=== PATIENT | male | born 1980 | race Two or more races ===

== ENCOUNTER 2025-03-09 08:55 | Inpatient (IN) | payer OTHER ==
[~2025-03-09] VITALS: Ht 185.4 cm; Wt 73.8 kg
--- NOTE | 2025-03-09 10:16 | Physician Documentation ---
History of Present Illness ~ Chief Complaint: Finger pain Stated Complaint: R HAND SWELLING Time Seen by MD: 10:04 OK to notify your PCP?: Yes Source: patient Mode of Arrival: POV Exam Limitations: no limitations HPI 45-year-old right-handed male with chief complaint right 5th digit pain and swelling which started yesterday. He states he was pulling out some a got a plans and he is not sure if he got bit by something or what but after he was doing this he felt pain and swelling in his finger which has gotten progressively worse since yesterday. No pre arrival treatment. He states he did get a small thorn in his finger but he pulled it out in is fairly confident that there is nothing remaining in the finger. States it is hard for him to bend his finger due to the pain. The redness has started to spreads up his hand as of this morning. Last tetanus 2020. Medication Reconciliation Allergies: Coded Allergies: No Known Allergies (Unverified , 03/09/25) Past Medical History Past Medical History: No Pertinent History Review of Systems All Other Systems at this time: Reviewed and Negative Physical Exam Vital Signs: Temperature: 97.7, Source: Temporal, Heart Rate: 59, Respiratory Rate: 18, BP: 128/84, Pulse Oximetry: 100, Weight: 73.800 Oxygen Flow Rate: 0 Physical Exam GENERAL: Alert, no acute distress. HEENT: NCAT, EOMI, PERRL, normal oropharynx, moist oral mucosa. NECK: Supple, trachea midline. CARDIAC: Regular rate and rhythm, no murmurs, rubs, or gallops. Cap refill at right hand 5th digit less than 2 seconds. Radial pulses 2+ bilaterally RESPIRATORY: Equal breath sounds, clear to auscultation bilaterally, no respiratory distress. MUSCULOSKELETAL: Normal gait. Right hand 5th digit held in partially flexed position. Unable to fully extend the digit due to pain. Passive extension causes pain. Edema and erythema at the MCP joint which spreads dustally to the PIP joint and proximally to the distal 4th and 5th metacarpals. Skin lines of finger are barely visible. Erythema is only on the dorsum of the digit and hand. No tenderness over the metacarpals or wrist. NEUROLOGICAL: Awake, alert, and oriented x 3. SKIN: Warm/dry, no pallor, no rash. PSYCH: Alert and appropriate. Affect congruent with mood. Speech is clear. Good eye contact. Progress Results/Orders Results/Orders Orders - FANNIE PAUL ESR (03/09/25 10:16) Finger(S) (03/09/25 10:16) Page Hospitalist (03/09/25 11:06) Completed Orders - FANNIE PAUL Cbc/Diff (03/09/25 10:16) BMP (03/09/25 10:16) Tetanus/Pertuss/Diph Acell/Pf (Boostrix (03/09/25 10:20) Finger(S) (03/09/25 10:16) Ceftriaxone 2gm/D5w 50ml Bag (Rocephin 2 (03/09/25 10:40) Medications Received in ER Medications (Trade) Dose Ordered Sig/Surinder Route PRN Reason Start Time Stop Time Status Last Admin Dose Admin Ceftriaxone Sodium/Dextrose 50 ml @ 100 mls/hr ONCE ONCE IV 03/09/25 10:40 03/09/25 11:09 DC 03/09/25 11:10 100 MLS/HR Vital Signs 03/09/25 09:01 Temp 97.7 Pulse 59 Resp 18 B/P (MAP) 128/84 Pulse Ox 100 O2 Flow Rate 0 Laboratory Tests Test 03/09/25 10:39 White Blood Count 6.8 Red Blood Count 5.19 Hemoglobin 15.2 Hematocrit 44.7 Mean Corpuscular Volume 86.2 Mean Corpuscular Hemoglobin 29.2 Mean Corpuscular Hemoglobin Concent 33.9 Red Cell Distribution Width 13.8 Platelet Count 263 Mean Platelet Volume 8.0 Neutrophils (%) (Auto) 60.7 Lymphocytes (%) (Auto) 27.1 Monocytes (%) (Auto) 10.7 Eosinophils (%) (Auto) 0.7 Basophils (%) (Auto) 0.8 Neutrophils # (Auto) 4.1 Lymphocytes # (Auto) 1.8 Monocytes # (Auto) 0.7 Eosinophils # (Auto) 0.0 Basophils # (Auto) 0.1 CBC Comment Sodium Level 140 Potassium Level 4.5 Chloride Level 106 Carbon Dioxide Level 27.6 Anion Gap 6 L Blood Urea Nitrogen 14 Creatinine 1.11 H Estimated GFR/1.73 m2 72 BUN/Creatinine Ratio 12.6 Glucose Level 97 Calcium Level 9.1 Albumin 3.9 Chemistry Comments Medical Decision Making Finger Diff Dx:Considerations: Include: Abrasion, Cellulitis, Contusion, Dislocation, Fracture, Hematoma, Laceration, Neurovascular injury, Open fracture, Subungual hematoma, Other Additional Comment Findings consistent with extensor tenosynovitis based off of pain with passive extension unable to actively extend digit. . Departure Time of Disposition: 10:16 Admitted to Inpatient Unit: to hospitalist, to orthopedist Impression: Primary Impression: Extensor tenosynovitis of finger Additional Impression: Cellulitis of finger of right hand Condition: Fair Referrals: NO PRIMARY CARE PROVIDER (PCP) Education Educated: Patient Educated regarding: diagnosis, treatment, need for follow up Signature Scribe Signature: x Attestation: FANNIE Carvalho March 09, 2025 10:16
[2025-03-09] MEDS: TETanus/Pertussis (Acell)/Diphther VAC/PF (Tdap-Adult) 0.5ml syringe IMVAC ONE (10:26)
--- NOTE | 2025-03-09 10:42 | RADIOLOGY REPORT ---
CLINICAL INDICATION: right 5th digit TECHNIQUE: right DI FINGER(S) Comparison: None FINDINGS/IMPRESSION: : There is no evidence of acute fracture or dislocation. Soft tissues are unremarkable.
[2025-03-09 10:48] LABS: BASOPHILS # (AUTO) 0.1 X10'3 (0-0.2); BASOPHILS % (AUTO) 0.8 % (0-1); EOSINOPHILS % (AUTO) 0.7 % (0-6); HEMATOCRIT 44.7 % (42.0-52.0); HEMOGLOBIN 15.2 g/dl (14.0-17.9); LYMPHOCYTES # (AUTO) 1.8 X10'3 (1.1-4.8); LYMPHOCYTES % (AUTO) 27.1 % (21-51); MEAN CORPUSCULAR HEMOGLOBIN 29.2 PG (27.0-31.0); MEAN CORPUSCULAR HGB CONC 33.9 g/dL (33.0-36.5); MEAN CORPUSCULAR VOLUME 86.2 FL (78-98); MONOCYTES # (AUTO) 0.7 X10'3 (0-0.9); MONOCYTES % (AUTO) 10.7 % (2-12); NEUTROPHILS # (AUTO) 4.1 X10'3 (1.8-7.7); NEUTROPHILS % (AUTO) 60.7 % (42-75); PLATELET COUNT 263 X10'3 (140-440); RED BLOOD COUNT 5.19 X10'6 (4.70-6.10); RED CELL DISTRIBUTION WIDTH 13.8 % (11.5-14.5); WHITE BLOOD COUNT 6.8 X10'3 (4.5-11.0)
[2025-03-09 10:56] LABS: ALBUMIN 3.9 G/DL (3.4-5.0); ANION GAP 6 (8-16); BLOOD UREA NITROGEN 14 MG/DL (7-18); BUN/CREATININE RATIO 12.6 (10.0-20.0); CALCIUM 9.1 MG/DL (8.5-10.1); CHLORIDE 106 MMOL/L (99-107); CREATININE 1.11 MG/DL (0.60-1.10); GLUCOSE 97 MG/DL (70-104); POTASSIUM 4.5 MMOL/L (3.5-5.1); SODIUM 140 MMOL/L (135-145); TOTAL CARBON DIOXIDE 27.6 MMOL/L (24-32); eCRCL 88 ML/MIN; eGFR 72 ML/MIN
[2025-03-09] MEDS: CefTRIAXone 2gm/D5W 50ml BAG 50 ML IV ONE (11:10)
[2025-03-09] MEDS ORDERED: magnesium hydroxide 30ml (MOM) UD suspension PO PRN (11:25)
[2025-03-09] MEDS ORDERED: potassium Cl 40MEQ/1/2NS 520ml 520 ML IV PRN (11:25)
[2025-03-09] MEDS ORDERED: potassium Cl 20 mEq SR tablet PO PRN ×2 (11:25)
[2025-03-09] MEDS ORDERED: magnesium sulf-water 4G/100mL 100 ML IV PRN (11:25)
[2025-03-09] MEDS ORDERED: HYDROcodone/acetaminophen 5mg/325mg tablet PO PRN (11:25)
[2025-03-09] MEDS ORDERED: bisacodyl 10mg suppository rectal RC PRN (11:25)
[2025-03-09] MEDS ORDERED: acetaminophen 325mg tablet PO PRN (11:25)
[2025-03-09] MEDS ORDERED: mag hydrox/Alum hydrox/simeth 30ml oral suspension PO PRN (11:25)
[2025-03-09] MEDS ORDERED: ondansetron/PF 4mg/2ml inj IV PRN (11:25)
[2025-03-09] MEDS ORDERED: magnesium sulf-water 2g/50mL 50 ML IV PRN (11:25)
[2025-03-09] MEDS ORDERED: magnesium Cl slow-release 64mg tablet PO PRN (11:25)
[2025-03-09 11:50] LABS: APTT 28 SECONDS (22-32); INR 1.1 INR; PROTHROMBIN TIME 11.1 SECONDS (9.0-12.0)
[2025-03-09] MEDS: ampicill/sulbac 1.5gm/NS 100ml 100 ML IV SCH (12:00)
[2025-03-09] MEDS: normal saline 1000ml 1,000 ML IV SCH (12:00)
[2025-03-09 12:01] LABS: MAGNESIUM 2.1 MG/DL (1.5-2.4)
[2025-03-09 12:08] LABS: HEMOGLOBIN A1C 5.1 % (4.5-6.2)
[2025-03-09] MEDS ORDERED: NO HOME MEDS (12:23)
--- NOTE | 2025-03-09 13:32 | HISTORY AND PHYSICAL-Residence ---
History & Physical Providers to CC Resident Creating Document: MARK SAMAYOA, RICHARD ~ History of Present Illness Reason for Admit\\Complaint: Right little finger swelling and redness History of Present Illness This is a 45-year-old male with no significant past medical history presents to the ED with a chief complaint of worsening pain and swelling in the right 5th finger. Patient mentions that he was doing some yard work and got in contact with "agave plant: on Wednesday morning, following which he developed some pain and redness in the finger. The pain got worse over the next two days with difficulty in flexion of the 5th right little finger which concerned him. The swelling and redness also spread slowly to the dorsum of the hand. He denies any associated fever, chills, insect bite, thorn prick. ED course: One dose of tetanus shot and one dose of ceftriaxone given in the ED. an x-ray of the right hand was done which was unremarkable. Allergies: Coded Allergies: No Known Allergies (Unverified , 03/09/25) Home Medications Home Medications Active Reported No Home Medications (Home Med List) Each Past Medical History Past Medical History Not significant Past Surgical History Surgical History Comment Not significant Past Social History Social History Comment Occasional alcohol use. Denies smoking, marijuana, drug use ROS All Other Systems: Reviewed and Negative ROS Reviewed and negative except for the pertinent positives in HPI Exam Vitals: Vital Signs Date Time Temp Pulse Resp B/P (MAP) Pulse Ox O2 Delivery O2 Flow Rate FiO2 03/09/25 09:01 97.7 59 18 128/84 100 0 General: General: well developed, well nourished. Awake , alert, and oriented x4, resting comfortably in the bed, in no acute distress . HEENT: Atraumatic, normocephalic, EOMI, anicteric sclera B; pink conjunctiva; PERRLA, normal oropharynx, moist oral and nasal mucosa. Tympanic membrane , nose , throat clear. Neck: Trachea midline. Supple, full range of motion, no JVD, bruit , hepatojugular reflex , lymphadenopathy or masses, or other lesions Cardiac: Regular rhythm, regular rate no murmurs, rubs, or gallops. Normal S1 and S2, no S3 noticed. PMI is normal. Respiratory: Equal breath sounds bilaterally, no tachypnea; lungs clear to auscultation bilaterally, no wheezing ,rub or rales, or crackles. Chest wall is symmetric and without deformity. No signs of trauma. Chest wall is nontender. No signs of respiratory distress. Resonance is normal upon percussion bilaterally. Gastrointestinal: Abdomen symmetric, non-distended, soft, non-tender, normal bowel sounds x4 quadrant, normoactive, no hepatosplenomegaly , no masses , no bruit, no flank pain bilaterally. No voluntary guarding, rebound, or rigidity. No tenderness to percussion. No pulsatile masses. Equal femoral pulses. No Brooks's sign or McBurney point tenderness. Back; no CVA tenderness bilaterally, no deformities. Neck and back are without deformity as well. No tenderness noted on palpation of the spinous processes. Spinous processes are midline. Cervical, thoracic, and lumbar paraspinal muscles are not tender and are without spasm. : normal external genitalia, without lesions, swelling, masses or tenderness. Musculoskeletal: Extremities: warmth and redness in the right little finger spreading to the dorsum of the head, no associated discharge or open wounds, normal range of motion, non-tender, muscle strength 5/5 x 4. Negative Homans signs bilaterally on lower extremity. Distal pulses full symmetrical, no clubbing, cyanosis , edema. Neurological: Speech is clear, alert, and oriented x 4. No motor or sensory deficit, deep tendon reflexes normal, cerebellar intact. Cranial nerves II-XII intact. Psych: Alert and or appropriate, normal affect. Vascular: Good distal pulses, which are equal x4; capillary refill less than 2 seconds. Skin: Warm, dry, no pallor, no rash or petechiae. Diagnostic Data Last Recorded Lab Results: 03/09/25 1039 03/09/25 1039 Diagnostic Data: Laboratory Tests Test 03/09/25 10:39 Prothrombin Time 11.1 SECONDS (9.0-12.0) INR International Normalized Ratio 1.1 INR Activated Partial Thromboplast Time 28 SECONDS (22-32) Coagulation Comments Advance Care Planning Advanced Care plannin - 30 Minutes (I spent a total of 17 minutes on reviewing various resuscitative measures/ ACP with the patient at the time of admission. The patient has decided on a full code status) Additional Plan Right little finger cellulitis Started on IV 1.5 g Unasyn q.6 hours scheduled. We will discharge on oral antibiotics after improvement. ESR, procalcitonin, lactic acid is within normal limits. Lab work including CBC, CMP were unremarkable. No leukocytosis. X-ray of the hand is unremarkable. Patient was given tetanus shot in the ED. Pain control with ibuprofen p.r.n. Blood cultures ordered. Follow up. Creatinine 1.1. Hydration with IV fluids at the rate of 100 mL/hour. Code Status: Full code DVT Prophylaxis: Heparin subcutaneous Analgesia/Sedation: Ibuprofen Lines/Tubes: PIV Gi Prophylaxis: None Nutrition: Regular diet PT: Yes Prognosis: Guarded Disposition: Admit to surgical floor Mark James MD Internal Medicine Resident PGY-1 Date of Service: March 09, 2025 Billing Provider: ROSA ELENA WALKER MD Common Visit Codes: 88472-[id number] INP/OBS CARE (HIGH) YAOMARK, RES March 09, 2025 13:32 ROSA ELENA WALKER MD Mar 13, 2025 16:22
[2025-03-09 16:30] VITALS: BP 130/85; PULSE 52; RESP 17; TEMP 98.5; O2SAT 100
--- NOTE | 2025-03-09 17:02 | CONSULTATION REPORT ---
History of Present Illness Providers to CC ~ Refering : Dr. Jimenez History of Present Illness The patient is a 45-year-old otherwise healthy male who states that two days ago he was working around some agave plant and might have gotten a thorn into the backside of his right pinky finger. It got worse over the subsequent 36 hours then he presented to the ER today with pain and swelling and redness to the finger and hand. He states prior to this he had no issues and no previous evidence of infection or dysfunction of the hand. He has been on antibiotics for a few hours with Bactrim and states he does not think he is much better. Allergies: Coded Allergies: No Known Allergies (Unverified , 03/09/25) Home Medications Home Medications Active Reported No Home Medications (Home Med List) Each Physical Exam Last Vital Signs Recorded: Temperature: 97.5, Source: Oral, Heart Rate: 51, Respiratory Rate: 18, BP: 135/87, Pulse Oximetry: 100, Weight: 73.800 Extremities There is some swelling of the right small finger and over the middle segment there was a small area which may represent small thorn or the foreign body. The does not appear to be any irritability of the extensor tendon in the area of entry is not near the joint. There was no tenderness on the flexor side. His tendons are intact though motion is limited because of the swelling of the finger. There was no tenderness in the hand or forearm area. White blood cell count is normal Results Diagram Lab Result Diagram: 03/09/25 1039 03/09/25 1039 Assessment/Plan Problems/Diagnosis: (1) Cellulitis of finger of right hand Additional Plan I think he will do well with IV antibiotics for a period of 24 hours. I will check in on him were then the next 12 hours and re-evaluate. Thank you for this consultation. SAMM FINK Jr., MD March 09, 2025 17:02
[2025-03-09 18:00] VITALS: BP 130/85; PULSE 52; RESP 17; TEMP 98.5; O2SAT 99
[2025-03-09 20:00] VITALS: RESP 17; O2SAT 99
[2025-03-09] MEDS: docusate sod 100mg capsule PO SCH (20:00)
[2025-03-09] MEDS: K and/or MAG REPLACEMENT MC SCH (20:00)
[2025-03-09] MEDS: heparin, porcine 5000 units/ml vial SQ SCH (20:42)
[2025-03-09 22:00] VITALS: BP 130/73; PULSE 58; RESP 16; TEMP 97.8; O2SAT 98
[2025-03-10 06:00] VITALS: BP 112/71; PULSE 55; RESP 16; TEMP 96.6; O2SAT 97
[2025-03-10 06:50] LABS: BASOPHILS # (AUTO) 0.1 X10'3 (0-0.2); BASOPHILS % (AUTO) 1.1 % (0-1); EOSINOPHILS # (AUTO) 0.1 X10'3 (0-0.9); HEMATOCRIT 39.5 % (42.0-52.0); HEMOGLOBIN 13.5 g/dl (14.0-17.9); LYMPHOCYTES # (AUTO) 2.5 X10'3 (1.1-4.8); LYMPHOCYTES % (AUTO) 34.9 % (21-51); MEAN CORPUSCULAR HEMOGLOBIN 29.6 PG (27.0-31.0); MEAN CORPUSCULAR HGB CONC 34.2 g/dL (33.0-36.5); MEAN CORPUSCULAR VOLUME 86.4 FL (78-98); MEAN PLATELET VOLUME 8.5 FL (7.4-10.4); MONOCYTES # (AUTO) 0.6 X10'3 (0-0.9); MONOCYTES % (AUTO) 9.1 % (2-12); NEUTROPHILS # (AUTO) 3.8 X10'3 (1.8-7.7); NEUTROPHILS % (AUTO) 52.9 % (42-75); PLATELET COUNT 218 X10'3 (140-440); RED BLOOD COUNT 4.57 X10'6 (4.70-6.10); RED CELL DISTRIBUTION WIDTH 13.9 % (11.5-14.5); WHITE BLOOD COUNT 7.1 X10'3 (4.5-11.0)
[2025-03-10 07:12] LABS: ALANINE AMINOTRANSFERASE 17 U/L (12-78); ALBUMIN/GLOBULIN RATIO 1.1 (1.1-1.5); ALKALINE PHOSPHATASE 59 IU/L (46-116); ANION GAP 8 (8-16); ASPARTATE AMINO TRANSFERASE 17 U/L (10-37); BILIRUBIN,TOTAL 0.5 MG/DL (0.1-1.0); BLOOD UREA NITROGEN 13 MG/DL (7-18); BUN/CREATININE RATIO 12.4 (10.0-20.0); CALCIUM 8.2 MG/DL (8.5-10.1); CHLORIDE 108 MMOL/L (99-107); CHOL/HDL RATIO 2.6 (0.00-4.99); CHOLESTEROL 143 MG/DL (0-200); CREATININE 1.05 MG/DL (0.60-1.10); GLUCOSE 99 MG/DL (70-104); HDL CHOLESTEROL 54 MG/DL (35-60); LDL CHOLESTEROL 75 MG/DL (50-100); MAGNESIUM 1.9 MG/DL (1.5-2.4); POTASSIUM 4.1 MMOL/L (3.5-5.1); SODIUM 142 MMOL/L (135-145); TOTAL CARBON DIOXIDE 26.1 MMOL/L (24-32); TOTAL PROTEIN 5.8 G/DL (6.4-8.2); TRIGLYCERIDES 54 MG/DL (20-135); eCRCL 93 ML/MIN; eGFR 76 ML/MIN
[2025-03-10 08:00] VITALS: RESP 16
[2025-03-10 10:00] VITALS: BP 121/69; PULSE 57; RESP 16; TEMP 98; O2SAT 97
[2025-03-10] MEDS ORDERED: IBUP-1985 PO (13:08)
[2025-03-10] MEDS ORDERED: AMOX-580 PO (13:08)
[2025-03-10] MEDS ORDERED: LACT1CAP26 PO (13:08)
--- NOTE | 2025-03-10 14:28 | DISCHARGE SUMMARY-Residence ---
Discharge Summary Providers to CC Resident Creating Document: EVANGELIST CORTÉSRICHARD ~ Discharge Summary Admission Diagnosis: Cellulitis of finger Hospital Course DATE OF ADMISSION: MARCH 09, 2025 DATE OF DISCHARGE: MARCH 10, 2025 Discharge Diagnosis\Comment: Right little finger cellulitis/soft tissue infection Acute kidney injury, likely vasomotor nephropathy Operations\Procedures: Non Consultants: None Complications: None Condition on DC: Stable New Medications: Amox Tr/Potassium Clavulanate 875/125 MG (Augmentin 875/125 MG) 875 Mg-125 Mg Tablet 1 TAB PO BID, #14 TAB Ibuprofen (Ibuprofen) 600 Mg Tablet 1 TAB PO Q8H for pain for 5 Days, #15 TAB 0 Refills with food Lactobacillus Rhamnosus (Culturelle) 10 Billion Cell Capsule 1 CAP PO DAILY for 30 Days, #30 CAP 0 Refills Discharge Summary: The patient is a 45-year-old male with no significant past medical history who presented to ER with worsening pain and swelling of the right 5th finger. He reported that the symptoms began after contact with gap planned during yd work two days prior. The pain had progressively worsened, and he developed difficulty flexing the finger, raising concern for a possible deep soft tissue infection of flexure tenosynovitis. On evaluation, he was found to have localized swelling, erythema, and impaired range of motion. While inflammatory markers including ESR, procalcitonin, and lactic acid were within normal limits, and the x-ray did not show evidence of osteomyelitis or abscess, his clinical presentation oriented prompt treatment and close monitoring. He was started on intravenous Unasyn for broad-spectrum coverage. Additionally, his creatinine was modestly elevated on admission, which improved with IV hydration. Given the location of the infection and the associated functional limitation, there was a concern for potential rapid progression or the need for surgical intervention. Based on this, the patient was admitted with an initial expectation that his care might requires at least two midnight for hospit alization. However, the patient responded to treatment faster than anticipated, with rapid improvement in swelling, pain, and renal function within the 1st 24 hours. As such, he was deemed stable for discharge. The shorter duration of hospitalization was due to unexpectedly rapid clinical improvement. Discharge medication: See above Discharge course: Swelling, redness, and tenderness improved. Today, he was able to use since finger while typing on his laptop. He was discharged with the following instructions: You were admitted for Right little finger soft tissue infection - prescribed oral antibiotics for seven days. Take your medication as prescribed. Follow up with your primary care physician in one week. Return to ER or call 911 if you experience high-grade fever, chills, or confusion. Discharge physical exam: Vital Signs Date Time Temp Pulse Resp B/P (MAP) Pulse Ox O2 Delivery O2 Flow Rate FiO2 03/10/25 10:00 98.0 57 16 121/69 (86) 97 Room Air 03/10/25 08:00 0.0 General: Awake and Alert, no acute distress. HEENT: Conjunctiva pink, Sclera clear, Mucus Membranes moist. Neck: Supple without masses and tenderness. Resp: Unlabored. Lungs clear to auscultation bilaterally. Heart: Regular Rate and rhythm, normal S1 and S2 without murmur, rub or gallop. Abdomen: Soft and non tender no organomegaly Extremities: No cyanosis,clubbing or edema. Skin: Warm and Dry. *Problems/Diagnosis: (1) Cellulitis of finger of right hand Status: Acute Total Time Spent on D/C: Up to 30 Minutes Date of Service: March 10, 2025 Billing Provider: ROSA ELENA WALKER MD Common Visit Codes: 12239-CYI/OBS DISCH DAY <30MIN EVANGELIST CORTÉS, RES March 10, 2025 14:25 ROSA ELENA WALKER MD Mar 13, 2025 16:23
== END 2025-03-10 15:21 | disposition home or self-care (01) | DRG 602 ==
LOC: ER 08:56 → ED HOLD 11:25 → SUR 3N 16:08
PROVIDERS: ADMIT Family Medicine; ATTEND Family Medicine
DX: L03.011 Cellulitis of right finger (principal); N17.0 Acute kidney failure with tubular necrosis
CPT/HCPCS: 36415; 73140; 80048; 80053; 80061; 83036; 83605; 83735; 83880; 84145; 85025; 85610; 85651; 85730; 87040; 87081; 96365; 96367; 99285; G0378; J0295; J0696; J1644; J7030